=== PATIENT | male | born 1925 | race Caucasian/White ===

== ENCOUNTER → 2017-07-08 17:40 | Outpatient (CLI) | payer MEDICARE ==
[2017-07-08 18:56] LABS: APPEARANCE CLEAR (CLEAR); BILIRUBIN NEGATIVE (NEGATIVE); COLOR YELLOW (YELLOW); GLUCOSE NEGATIVE (NEGATIVE); KETONE NEGATIVE (NEGATIVE); NITRITE NEGATIVE (NEGATIVE); PROTEIN TRACE mg/dL (NEGATIVE); SPECIFIC GRAVITY 1.005 (1.005-1.020); UROBILINOGEN NORMAL (NORMAL)
[2017-07-08 19:00] LABS: RED CELLS - URINE 0-5 /hpf (0-5)
[2017-07-08 19:01] LABS: BACTERIA FEW /hpf (NONE SEEN); EPITHELIAL CELLS 0-5 /hpf (0-5)
== END | disposition home or self-care (01) ==
LOC: D.LABREF 17:40
PROVIDERS: Family Medicine
DX: E86.0 Dehydration (principal); R50.9 Fever, unspecified